=== PATIENT | female | born 2000 | race Caucasian/White ===

== ENCOUNTER 2018-01-03 12:22 | Emergency (ER) | payer MEDICAID ==
[2018-01-03 12:59] LABS: PLATELET COUNT 331 10^3/uL (150-400)
--- NOTE | 2018-01-03 15:23 | EDPHY ---
H & P Smoking Status: Never smoked Time Seen by Provider: 01/03/18 13:24 HPI/ROS: CHIEF COMPLAINT: Feeling suicidal HISTORY OF PRESENT ILLNESS: 17-year-old female presents to the emergency department by private vehicle feeling suicidal. Patient has a history of schizophrenia. She has been taking her medications as prescribed. Patient has a lot of anxiety and feeling depressed because she has to go back to work on . Patient denies any known trauma or injury. She states that she has a history of schizophrenia and she states "I hate that I have to try hard and that everything is fine and my life". She has no physical complaints. No chest pain or difficulty breathing. No abdominal pain. No vomiting. No reports of diarrhea. No substance abuse. REVIEW OF SYSTEMS: Constitutional: No fever, no chills. Eyes: No double or blurry vision. ENT: No sore throat. Respiratory: No cough, no shortness of breath. Cardiac: No chest pain. Gastrointestinal: No abdominal pain, vomiting or diarrhea. Genitourinary: No dysuria. Musculoskeletal: No neck or back pain. Skin: No rashes. Neurological: No headache. (Usha Murguia) Past Medical/Surgical History: Schizoaffective disorder, asthma, PTSD, depression (Usha Murguia M) Social History: Single and lives with roommates (Usha Murguia) Physical Exam: General Appearance: Alert, no distress. Eyes: Pupils equal and round. Extraocular motions are all intact. ENT: Mouth: Mucous membranes moist. Respiratory: No wheezing, rhonchi, or rales, lungs are clear to auscultation. Cardiovascular: Regular rate and rhythm. Gastrointestinal: Abdomen is soft and nontender, no masses, no rebound or guarding, bowel sounds normal. Neurological: Alert and oriented x 3, cranial nerves II through XII grossly intact Skin: Warm and dry, no rashes. The healing abrasions to the dorsal aspect of her left forearm. No signs of infection or suturable lacerations. Musculoskeletal: Nontender to palpate along the cervical, thoracic or lumbar spine. Neck is supple. Extremities: Full range of motion and no peripheral edema. Psychiatric: Patient is oriented X 3, there is no agitation. (Brittany Murguiaa M) Constitutional: Initial Vital Signs Temperature (C) 36.2 C 01/03/18 12:32 Heart Rate 120 H 01/03/18 12:32 Respiratory Rate 18 01/03/18 12:32 Blood Pressure 125/97 H 01/03/18 12:32 O2 Sat (%) 94 01/03/18 12:32 O2 Delivery Mode Room Air Allergies/Adverse Reactions: lorazepam [From Ativan] Adverse Reaction (Intermediate, Unverified 01/03/18 19: 33) Extreme anxiety Medical Decision Making ED Course/Re-evaluation: 17-year-old female with a history of schizoaffective disorder presents feeling suicidal. She has been medically cleared and was evaluated by mental health. 5:42 p.m.: Patient will likely be placed at [facility]. Awaiting to hear confirmation. (Usha Murguia) I took over care of this patient at 5:00 p.m.. The patient is on an M1 hold for suicidal ideation and schizoaffective disorder as well as depression. The patient is to be admitted to the [facility]. This will likely happen sometime later this morning. The patient's emergency department course under my care has been uneventful. Care was turned over to Dr. Huber at 11:00 p.m.. (Jas Roberson) 7:00 a.m.- The patient has remained stable throughout my shift. I did give her a dose of melatonin for sleep and a dose of Benadryl this morning. She is continuing to await placement. The case is signed out to Devin. (Alka Huber) Differential Diagnosis: Depression including functional and major depression, situational depression, medication side effect, drugs and alcohol abuse. (Usha Murguia) Other Provider: Patient now re-evaluated by mental health, who recommends discharge home today, placement at [facility] tomorrow. (Mendel Beltran) - Data Points Laboratory Results: Laboratory Results 01/03/18 12:40 01/03/18 12:40 Medications Given: Trazodone HCl (Trazodone) 100 mg PO HS WILLIAN Stop: 07/02/18 20:59 Last Admin: 01/03/18 20:00 Dose: 100 mg Discontinued Medications Clonidine (Catapres) 0.1 mg PO EDNOW ONE Stop: 01/03/18 19:58 Last Admin: 01/03/18 20:00 Dose: 0.1 mg Diphenhydramine HCl (Benadryl) 25 mg PO EDNOW ONE Stop: 01/04/18 06:40 Last Admin: 01/04/18 06:41 Dose: 25 mg Melatonin (Melatonin) 3 mg PO EDNOW ONE Stop: 01/04/18 02:22 Last Admin: 01/04/18 02:32 Dose: 3 mg Trifluoperazine HCl (Stelazine) 5 mg PO EDNOW ONE Stop: 01/03/18 19:58 Last Admin: 01/03/18 20:00 Dose: 5 mg Departure - Departure Disposition: Home, Routine, Self-Care Clinical Impression: Depression Qualifiers: Depression Type: unspecified Qualified Code(s): F32.9 - Major depressive disorder, single episode, unspecified Schizoaffective disorder Qualifiers: Schizoaffective disorder type: unspecified Qualified Code(s): F25.9 - Schizoaffective disorder, unspecified Condition: Good Referrals: NONE *PRIMARY CARE P,. [Primary Care Provider] - As per Instructions
[2018-01-03] MEDS ORDERED: TRIFLUOPERAZINE HCL 5 MG TAB PO ONE (19:57)
[2018-01-03] MEDS ORDERED: traZODone 100 MG TAB PO SCH (21:00)
[2018-01-03 23:23] VITALS: TEMP 98.4
[2018-01-04] MEDS ORDERED: MELATONIN 3 MG TAB PO ONE (02:21)
[2018-01-04] MEDS ORDERED: LORazepam 1 MG TAB ONE (06:30)
[2018-01-04] MEDS ORDERED: diphenhydrAMINE 25 MG CAP PO ONE ×2 (06:36→06:39)
[2018-01-04 12:20] VITALS: BP 134/86; PULSE 83; RESP 18; O2SAT 96
== END 2018-01-04 12:19 | disposition home or self-care (01) ==
LOC: EEVIPCON 12:22
DX: F32.9 Major depressive disorder, single episode, unspecified (principal); F25.9 Schizoaffective disorder, unspecified; J45.909 Unspecified asthma, uncomplicated
CPT/HCPCS: 80305; G0480